=== PATIENT | female | born 1960 | race Caucasian/White ===

== ENCOUNTER 2017-07-28 16:20 | Emergency (ER) | payer OTHER ==
[2017-07-28] MEDS: KETOROLAC 60 MG INJ IM (17:09)
[2017-07-28] MEDS: morphine 4 MG/ML VIAL IM (17:09)
[2017-07-28] MEDS: METHOCARBAMOL 750 MG TAB PO (19:10)
== END 2017-07-28 21:50 | disposition home or self-care (01) ==
LOC: E/R 16:20
DX: S86.812A Strain of other muscle(s) and tendon(s) at lower leg level, left leg, initial encounter (principal); S96.912A Strain of unspecified muscle and tendon at ankle and foot level, left foot, initial encounter; E03.9 Hypothyroidism, unspecified; F17.210 Nicotine dependence, cigarettes, uncomplicated; X58.XXXA Exposure to other specified factors, initial encounter; Y92.9 Unspecified place or not applicable
CPT/HCPCS: 73562; 73610; 96372; 99284-25